=== PATIENT | female | born 1975 | race Caucasian/White ===

== ENCOUNTER 2019-09-25 11:57 | Emergency (ER) | payer OTHER ==
--- NOTE | 2019-09-25 14:28 | ED ---
Dizziness - HPI Summary HPI Summary: Patient is a 44 y/o F presenting to the ED for a chief complaint of dizziness. Patient is present with her . She describes feeling she would have a syncopal episode on 09/24/19 and had dizziness, shaking, and lightheadedness at that time. She also notes generalized weakness and fatigue that began a few days ago. She is crying in the room and notes having anxiety about her health. Patient is unsure if she has lost weight since her symptom onset. She denies any aggravating or alleviating factors. Two weeks ago, patient was diagnosed with Giardia after a positive stool culture at [place] after having diarrhea and nausea. She was prescribed Flagyl for 7 days, which she completed on at 06:00. She previously had a Giardia infection 2 years ago with symptoms of nausea and diarrhea. PMHx is significant for anxiety and depression and PSHx is significant for . - History Of Current Complaint Chief Complaint: EDDizziness Stated Complaint: FEELS LIKE I AM SHARITA TO PASS OUT Time Seen by Provider: 09/25/19 13:53 Hx Obtained From: Patient Onset/Duration: Resolved Severity Initially: Moderate Severity Currently: Moderate Character: Dizzy Aggravating Factor(s): Nothing Alleviating Factor(s): Nothing Associated Signs And Symptoms: Positive: Nausea - From prior Giardia, Diarrhea - From prior Giardia - Allergies/Home Medications Allergies/Adverse Reactions: Allergies Allergy/AdvReac Type Severity Reaction Status Date / Time No Known Allergies Allergy Verified 09/25/19 14:11 PMH/Surg Hx/FS Hx/Imm Hx Previously Healthy: Yes Endocrine/Hematology History: Reports: Other Endocrine/Hematological Disorders - Giardia Denies: Hx Diabetes, Hx Thyroid Disease Cardiovascular History: Denies: Hx Hypertension Respiratory History: Denies: Hx Asthma, Hx Chronic Obstructive Pulmonary Disease (COPD) GI History: Denies: Hx Ulcer Sensory History: Denies: Hx Legally Blind, Hx Deafness Opthamlomology History: Denies: Hx Legally Blind EENT History: Denies: Hx Deafness Psychiatric History: Reports: Hx Anxiety, Hx Depression - formerly on Zoloft - Surgical History Surgical History: Yes Surgery Procedure, Year, and Place: csection 2009. left knee arthroscopy 1988 Infectious Disease History: No Infectious Disease History: Denies: Hx Clostridium Difficile, Hx Hepatitis, Hx Human Immunodeficiency Virus (HIV), Hx of Known/Suspected MRSA, Hx Shingles, Traveled Outside the [place] in Last 30 Days - Family History Known Family History: Negative: Diabetes - Social History Lives: With Family Alcohol Use: None Hx Substance Use: No Substance Use Type: Reports: None Hx Tobacco Use: No Smoking Status (MU): Never Smoked Tobacco Have You Smoked in the Last Year: No Review of Systems Positive: Fatigue, Other - Unsure if positive weight loss Positive: Diarrhea - From Giardia infection, Nausea - From Giardia infection Neurological: Other - Positive dizziness and lightheadedness Positive: Weakness - Generalized Positive: Anxious All Other Systems Reviewed And Are Negative: Yes Physical Exam - Summary Physical Exam Summary: Constitutional: Well-developed, Well-nourished, Tearful Skin: Warm, Dry HENT: Normocephalic; Atraumatic Eyes: Conjunctiva normal Neck: Musculoskeletal ROM normal neck. (-) JVD, (-) Stridor, (-) Nuchal rigidity Cardio: Rhythm regular, rate normal, Heart sounds normal; Intact distal pulses; Radial pulses are 2+ and symmetric. (-) Murmur Pulmonary/Chest wall: Effort normal. (-) Respiratory distress, (-) Wheezes, (-) Rales Abd: Soft, (-) tenderness, (-) Distension, (-) Guarding, (-) Rebound Musculoskeletal: (-) Edema Lymph: (-) Cervical adenopathy Neuro: Alert, Oriented x3, Ambulates w steady gait Psych: Anxious and tearful. Triage Information Reviewed: Yes Vital Signs On Initial Exam: Initial Vitals Temp Pulse Resp BP Pulse Ox 100.3 F 74 16 131/85 99 09/25/19 12:01 09/25/19 12:01 09/25/19 12:01 09/25/19 12:01 09/25/19 12:01 Vital Signs Reviewed: Yes Procedures - Sedation Patient Received Moderate/Deep Sedation with Procedure: No Diagnostics - Vital Signs Vital Signs Temp Pulse Resp BP Pulse Ox 09/25/19 12:01 100.3 F 74 16 131/85 99 - Laboratory Result Diagrams: 09/25/19 14:33 09/25/19 14:33 Lab Statement: Any lab studies that have been ordered have been reviewed, and results considered in the medical decision making process. - EKG 14:16 Cardiac Rate: NL - 66 BPM EKG Rhythm: Sinus Rhythm ST Segment: Normal Ectopy: None Summary of EKG Findings: An EKG at 14:16 reveals normal sinus rhythm 66 BPM, nml axis, nml intervals. No STEMI. No acute changes. Reviewed and interpreted by Dr. Silva. Re-Evaluation - Re-Evaluation Second Eval Change: Improved - feeling better, NAD. Labs w/o e/o infectious cause or electrolyte abnl. Orthostatics WNL. Given GI follow up. Dizzy Course/Dx - Course Course Of Treatment: 44 y/o F w recent giardia, anxiety/dep p/w fatigue. - PE well appearing, tearful. Reporting fatigue and lightheadedness. - Dizziness ddx : Differential diagnosis includes: Cardiac causes - will check EKG, troponin, get orthostatics. Electrolyte disturbances - will check CMP. Anemia - will check CBC. No vertigo - Diagnoses Provider Diagnoses: Fatigue Discharge ED - Sign-Out/Discharge Documenting (check all that apply): Patient Departure - Discharge - Discharge Plan Condition: Stable Disposition: HOME Patient Education Materials: Lightheadedness (ED) Referrals: Helio Lu MD [Primary Care Provider] - Trip Krishnamurthy DO [Doctor of Osteopathy] - Additional Instructions: You were seen in the emergency department for light headedness. Your labs did not show any cause for this, your vital signs are stable. Please follow up with your primary care doctor in next 2-3 days and return to emergency department for worsening or concerning symptoms. You can follow-up with gastroenterology regarding your Giardia. It was a pleasure taking care of you today. - Billing Disposition and Condition Condition: STABLE Disposition: Home - Attestation Statements Document Initiated by Florencioibe: Yes Documenting Scribe: Nallely Ramirez Provider For Whom Josey is Documenting (Include Credential): Deidre Silva MD Scribe Attestation: Nallely Ramirez scribed for Deidre Silva MD on 09/26/19 at 1003. Scribe Documentation Reviewed: Yes Provider Attestation: The documentation as recorded by the Nallely de leon accurately reflects the service I personally performed and the decisions made by me, Deidre Silva MD Status of Scribe Document: Viewed
[2019-09-25] MEDS ORDERED: NS 0.9% 1000 ML** 1,000 ML IV ONE (14:29)
[2019-09-25 14:47] LABS: ABS Monocytes 0.3 10^3/ul (0-0.8); ABS Neutrophils 3.3 10^3/ul (1.5-7.7); Eosinophil % 0.1 %; Hematocrit 39 % (35-47); Hemoglobin 13.4 g/dL (12.0-16.0); Lymphocyte % 20.6 %; Mean Corpuscular HGB Conc 34 g/dL (31-36); Mean Corpuscular Hemoglobin 30 pg (27-31); Mean Corpuscular Volume 87 fL (80-97); Mean Platelet Volume 9.2 fL (7.4-10.4); Platelet Count 257 10^3/uL (150-450); Red Blood Count 4.47 10^6 /uL (3.70-4.87); Red Cell Distribution Width 14 % (10-15); White Blood Count 4.6 10^3/uL (3.5-10.8)
[2019-09-25 15:04] LABS: ALT 13 U/L (7-52); AST 14 U/L (13-39); Albumin 4.2 g/dL (3.2-5.2); Albumin/Globulin Ratio 1.7 (1-3); Alkaline Phosphatase 44 U/L (34-104); Anion Gap 5 mmol/L (2-11); BUN/Creatinine Ratio 9.8 (8-20); Blood Urea Nitrogen 6 mg/dL (6-24); CO2 Carbon Dioxide 28 mmol/L (22-32); Calcium 9.7 mg/dL (8.6-10.3); Chloride 108 mmol/L (101-111); EGFR African American 128.3 (>60); EGFR Non-African American 106.1 (>60); Globulin 2.5 g/dL (2-4); Glucose 151 mg/dL (70-100); Potassium 3.7 mmol/L (3.5-5.0); Sodium 141 mmol/L (135-145); Total Protein 6.7 g/dL (6.4-8.9)
[2019-09-25 15:10] LABS: HCG Pregnancy < 0.60 mIU/mL
[2019-09-25 15:58] VITALS: BP 109/78
[2019-09-28 00:18] LABS: Anaplasma phagocytophilium <1:64 titer (<1:64); Ehrlichia chaffeensis IgG AB <1:64 titer (<1:64); Lyme Disease Serology Negative (Negative)
== END 2019-09-25 15:51 | disposition home or self-care (01) ==
LOC: ED 11:57
DX: R53.83 Other fatigue (principal); F41.9 Anxiety disorder, unspecified; F32.9 Major depressive disorder, single episode, unspecified
CPT/HCPCS: 36415; 80053; 84702; 85025; 86618; 86666; 86753; 93005; 96360; 99282